=== PATIENT | male | born 1970 | race African-American/Black ===

== ENCOUNTER 2017-08-27 20:03 | Emergency (ER) | payer OTHER ==
[~2017-08-27] VITALS: Ht 175.3 cm; Wt 85.0 kg
[2017-08-27] MEDS ORDERED: IOHEXOL 350 MG/ML 10 ML VIAL (for RAD DIAG) IVCONTRAST ONE (20:04)
[2017-08-27 20:13] VITALS: BP 152/93; PULSE 76; RESP 16; TEMP 96.7; O2SAT 98
[2017-08-27] MEDS ORDERED: SODIUM CHLOR 0.9% 1000 ML INJ 1,000 ML IV SCH (21:21)
[2017-08-27] MEDS ORDERED: SODIUM CHLORIDE 0.9% FLUSH 10 ML FLUSH IVF PRN (21:30)
[2017-08-27] MEDS ORDERED: KETOROLAC TROMETHAMINE 30 MG/ML (IVP) VIAL IV PUSH ONE (21:30)
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
[2017-08-27 22:47] LABS: AUTOMATED NEUTROPHIL # 2.3 TH/MM3 (1.8-7.7); BASOPHIL % 0.3 % (0.0-2.0); EOSINOPHIL # 0.3 TH/MM3 (0-0.4); EOSINOPHIL % 5.8 % (0.0-4.0); HEMATOCRIT 43.6 % (39.0-51.0); HEMOGLOBIN 13.9 GM/DL (13.0-17.0); LYMPH % 33.2 % (9.0-44.0); LYMPHOCYTE # 1.6 TH/MM3 (1.0-4.8); MEAN CORPUSCULAR HEMOGLOBIN 28.6 PG (27.0-34.0); MEAN CORPUSCULAR HGB CONC 31.8 % (32.0-36.0); MEAN PLATELET VOLUME 9.1 FL (7.0-11.0); MONO % 14.3 % (0.0-8.0); MONOCYTE # 0.7 TH/MM3 (0-0.9); NEUT % 46.4 % (16.0-70.0); PLATELET COUNT 180 TH/MM3 (150-450); RED BLOOD COUNT 4.85 MIL/MM3 (4.50-5.90); RED CELL DISTRIBUTION WIDTH 13.1 % (11.6-17.2); WHITE BLOOD COUNT 4.9 TH/MM3 (4.0-11.0)
[2017-08-27 22:50] LABS: PROTHROMBIN TIME - PATIENT 10.5 SEC (9.8-11.6)
[2017-08-27 22:59] LABS: BILIRUBIN, URINE NEG (NEG); BLOOD, URINE NEG (NEG); GLUCOSE,URINE NEG (NEG); KETONE, URINE NEG (NEG); NITRITE,URINE NEG (NEG); PH, URINE 7.5 (5.0-8.5); SPERM, URINE RARE; URINE COLOR YELLOW (YELLW/STRAW); URINE LEUKOCYTE ESTERASE NEG (NEG)
[2017-08-27 23:06] LABS: ALKALINE PHOSPHATASE 46 U/L (45-117); TOTAL BILIRUBIN ADULT 0.2 MG/DL (0.2-1.0); TOTAL PROTEIN 8.1 GM/DL (6.4-8.2)
[2017-08-27 23:11] LABS: ALBUMIN 4.2 GM/DL (3.4-5.0); ALT (GPT) 63 U/L (12-78); AST (GOT) 44 U/L (15-37); BICARBONATE 31.2 MEQ/L (21.0-32.0); BLOOD UREA NITROGEN 12 MG/DL (7-18); CALCIUM 8.8 MG/DL (8.5-10.1); CHLORIDE 105 MEQ/L (98-107); CREATININE 1.07 MG/DL (0.60-1.30); GLOMERULAR FILTRATION RATE 91 ML/MIN (>89); GLUCOSE,RANDOM 97 MG/DL (74-106); SODIUM (NA) 142 MEQ/L (136-145)
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
[2017-08-27] MEDS ORDERED: CYCL10TA PO (23:58)
[2017-08-27] MEDS ORDERED: IBUP1TAB7 PO (23:58)
== END 2017-08-28 00:08 | disposition home or self-care (01) ==
LOC: NEPD 20:03
DX: S16.1XXA Strain of muscle, fascia and tendon at neck level, initial encounter (principal); S40.021A Contusion of right upper arm, initial encounter; S46.911A Strain of unspecified muscle, fascia and tendon at shoulder and upper arm level, right arm, initial encounter; V49.59XA Passenger injured in collision with other motor vehicles in traffic accident, initial encounter
CPT/HCPCS: 70450; 71010; 72125; 73060; 74177; 80053; 81001; 85025; 85610; 85730; 86850; 86900; 86901; 96361; 96374; 99285; J1885; J7030; Q9967